=== PATIENT | male | born 1985 | race Caucasian/White ===

== ENCOUNTER 2016-08-20 21:05 | Emergency (ER) | payer SELFPAY ==
[2016-08-20] MEDS ORDERED: KETOROLAC 30 MG/ML VIAL ONE (21:37)
[2016-08-20] MEDS ORDERED: ASPIRIN 81 MG CHEW TAB ONE (21:37)
== END 2016-08-20 22:31 | disposition home or self-care (01) ==
LOC: ER 21:05
DX: R07.89 Other chest pain (principal); R09.1 Pleurisy; F17.290 Nicotine dependence, other tobacco product, uncomplicated
CPT/HCPCS: 36415; 71010; 80053; 82550; 83735; 84484; 85025; 85379; 85610; 85730; 93005; 96374